=== PATIENT | male | born 1950 | race Caucasian/White ===

== ENCOUNTER → 2016-05-01 | Outpatient (REF) | payer BC, MEDICARE ==
[~2016-05-01] MED LIST: LIPI10TA PO; LISI10TA2 PO; MECL25CH PO; SYNT50TA PO; TYLE325T5 PO
== END | disposition home or self-care (01) ==
LOC: M LAB REF 16:09
PROVIDERS: ATTEND Surgery
DX: L02.511 Cutaneous abscess of right hand (principal)

== ENCOUNTER 2018-02-25 07:13 | Day surgery (SDC) | payer BC ==
[2018-02-25] MEDS: NS 1,000 ML IV (07:49)
[2018-02-25] MEDS ORDERED: LIDOCAINE 2% INJ 100 MG/5 ML SDV (FOR ANES.) As Ordered (09:08)
[2018-02-25] MEDS ORDERED: PROPOFOL 500 MG/50 ML VIAL As Ordered (09:08)
== END 2018-02-25 09:52 | disposition home or self-care (01) ==
LOC: M OPP 07:13
DX: Z12.11 Encounter for screening for malignant neoplasm of colon (principal); K57.30 Diverticulosis of large intestine without perforation or abscess without bleeding; Z80.0 Family history of malignant neoplasm of digestive organs; I10 Essential (primary) hypertension; E78.70 Disorder of bile acid and cholesterol metabolism, unspecified; E03.9 Hypothyroidism, unspecified; F41.9 Anxiety disorder, unspecified; F33.9 Major depressive disorder, recurrent, unspecified; Z79.82 Long term (current) use of aspirin; Z79.899 Other long term (current) drug therapy; Z98.890 Other specified postprocedural states; Z90.49 Acquired absence of other specified parts of digestive tract; Z86.79 Personal history of other diseases of the circulatory system
CPT/HCPCS: G0105

== ENCOUNTER → 2018-07-21 | Outpatient (CLI) | payer MEDICARE ==
[~2018-07-21] MED LIST changes: +ASPI81TA85 PO; +HYDR-3363 PO; +ISOVUE-370 76% 125ML VIAL (Q9967 PER ML) As Ordered ONE; +LOSA50TA88 PO; +MECL1CHW PO; -MECL25CH PO; +SERT-155 PO; +SYNT112T2 PO
--- NOTE | 2018-07-21 09:45 | REP ---
CT chest with IV contrast: History: Thoracic aortic aneurysm of the ascending aorta. Comparison CT study February 04, 2015. CT contrast dose: 75 ml of intravenous Isovue [address] findings: There is mild to moderate ascending aortic dilation again seen. The maximum AP dimension today is 5.06 cm. This is unchanged. There is aortic valvular calcification again noted. Some left coronary artery vascular calcification is noted. Great vessels are tortuous as before. The left vertebral artery is noted incidentally to take a direct aortic origin which is a normal variant. No other vascular abnormality is seen. The descending aorta is tortuous but not aneurysmal. No hilar or mediastinal mass or adenopathy is observed. No pleural or pericardial effusion is seen. There are multiple pulmonary nodules seen. The largest of these include a 8 mm nodule in the right lower lobe seen on page 57 of 116 in series 201 of today's study. There is also an 8 mm nodule in the left lower lobe observed on page 56 of 116. The other noncalcified nodules are all smaller. These are all unchanged from the 2015 prior study. No bony lesion is seen. Impression: 1. Stable ascending thoracic aortic aneurysm, 5.1 cm. Aortic valvular calcification seen. 2. Stable bilateral noncalcified pulmonary nodules. Electronically Signed by Medardo Frausto MD 07/21/2018 10:31 A
== END ==
LOC: M RAD 07:44
PROVIDERS: ATTEND Internal Medicine Cardiovascular Disease
DX: I71.2 Thoracic aortic aneurysm, without rupture (principal); R91.1 Solitary pulmonary nodule
CPT/HCPCS: 71260; Q9967

== ENCOUNTER → 2018-10-16 | Outpatient (CLI) | payer MEDICARE, BC ==
[~2018-10-16] MED LIST changes: -ISOVUE-370 76% 125ML VIAL (Q9967 PER ML) As Ordered ONE
[2018-10-16 16:44] LABS: BASO # 0.1 10^3/uL (0.0-0.2); BASO % 0.9 % (0.0-1.0); EOS # 0.3 10^3/uL (0.0-0.50); EOS % 3.3 % (0.0-3.0); HEMATOCRIT 45.8 % (42.0-52.0); HEMOGLOBIN 15.1 g/dl (13.5-17.5); LYMPH # 2.9 10^3/uL (1.5-4.5); MEAN CORPUSCULAR HEMOGLOBIN 28.9 pg (27.0-33.0); MEAN CORPUSCULAR VOLUME 87.6 fl (80.0-96.0); MONO # 0.7 10^3/uL (0.0-0.8); MONO % 8.7 % (0.0-5.0); NEUTROPHILS # 3.7 10^3/uL (1.8-7.7); NEUTROPHILS % 48.7 % (36.0-66.0); PLATELET COUNT, AUTOMATED 200 10^3/uL (150-450); RED BLOOD COUNT 5.23 10^6/uL (4.30-6.10); WHITE BLOOD COUNT 7.6 10^3/uL (4.0-10.0)
[2018-10-16 17:01] LABS: ALBUMIN 3.7 GM/DL (3.2-5.2); PERCENT SATURATION 34.8 % (19.7-50.0); THYROID STIMULATING HORMONE 1.98 uIU/ML (0.358-3.740)
== END ==
LOC: M WUC 09:42
PROVIDERS: ATTEND Orthopaedic Surgery
DX: Z01.818 Encounter for other preprocedural examination (principal); Z86.39 Personal history of other endocrine, nutritional and metabolic disease; D63.8 Anemia in other chronic diseases classified elsewhere; M25.562 Pain in left knee; M17.12 Unilateral primary osteoarthritis, left knee

== ENCOUNTER → 2018-10-29 | Outpatient (CLI) | payer MEDICARE, BC | LOC: M PT 10:05 | PROVIDERS: ATTEND Orthopaedic Surgery | DX: M25.562 Pain in left knee (principal); M17.12 Unilateral primary osteoarthritis, left knee ==

== ENCOUNTER 2018-12-18 09:30 | Outpatient (RCR) | payer MEDICARE, BC ==
[~2018-12-18 09:30] MED LIST changes: +LISI10TA15 PO; -LISI10TA2 PO
== END 2018-12-20 ==
LOC: M PT 09:30
PROVIDERS: ATTEND Orthopaedic Surgery
DX: Z96.651 Presence of right artificial knee joint (principal)

== ENCOUNTER 2019-01-01 09:28 | Outpatient (RCR) | payer MEDICARE, BC | END 2019-01-19 | LOC: M PT 09:28 | PROVIDERS: ATTEND Orthopaedic Surgery | DX: M25.562 Pain in left knee (principal); Z96.659 Presence of unspecified artificial knee joint ==

== ENCOUNTER 2019-02-10 09:25 | Outpatient (RCR) | payer MEDICARE, BC ==
[~2019-02-10 09:25] MED LIST changes: -SERT-155 PO; +SERT50TA29 PO
== END 2019-02-19 ==
LOC: M PT 09:25
PROVIDERS: ATTEND Orthopaedic Surgery
DX: Z47.1 Aftercare following joint replacement surgery (principal); Z96.652 Presence of left artificial knee joint; M25.562 Pain in left knee; M17.12 Unilateral primary osteoarthritis, left knee

== ENCOUNTER → 2019-11-11 | Outpatient (CLI) | payer MEDICARE, BC ==
[~2019-11-11] MED LIST changes: -ASPI81TA85 PO; +ASPI81TA86 PO
--- NOTE | 2019-11-11 17:01 | REP ---
Clinical: Thoracic aortic aneurysm. Technique: Axial noncontrast images from the thoracic inlet to the upper abdomen with coronal and sagittal re-formations. Comparison: 07/21/2018, 02/04/2015. Findings: The ascending thoracic aorta again measures 5.3 cm maximal diameter with mild chronic atherosclerotic changes. Descending thoracic aorta is normal and measures 2.9 cm maximal diameter. No periaortic inflammatory stranding or fluid identified. Heart and pericardium stable. The bilateral lung desir are well-aerated. Few scattered noncalcified nodules are again identified, stable and measure up to approximately 7 mm. No consolidation, effusion, or pneumothorax. No obvious adenopathy. Musculoskeletal structures demonstrate degenerative changes. Impression: 1. Stable aneurysmal dilatation to the ascending thoracic aorta. 2. Stable noncalcified pulmonary nodules in the lower lobes measure up to 7 mm. Electronically Signed by Angel Luis Milligan MD 11/11/2019 04:53 P
== END ==
LOC: M RAD 15:32
PROVIDERS: ATTEND Thoracic Surgery (Cardiothoracic Vascular Surgery)
DX: I71.2 Thoracic aortic aneurysm, without rupture (principal)

== ENCOUNTER → 2021-01-27 | Outpatient (CLI) | payer MEDICARE, BC ==
--- NOTE | 2021-01-27 11:20 | REP ---
INDICATION: THORACIC AORTIC ANEURYSM W/O RUPTURE COMPARISON: Multiple the latest 11/11/2019 also without contrast TECHNIQUE: Standard helical technique without contrast FINDINGS: The mediastinum and pulmonary maria isabel are stable. The maximal AP dimension of the ascending aorta is 5.3 cm outer wall to outer wall status quo. There are no pleural or pericardial effusions. There is no significant change in appearance of the imaged upper abdomen or imaged osseous structures. Evaluation of the lung desir shows numerous stable appearing pulmonary nodules particularly in the lower lobes and partially obscured by respiratory motion artifact on the latest prior. They are also stable when compared to the 07/21/[address] No definite new abnormal nodules, masses, or opacities have developed. IMPRESSION: Stable CT examination of the chest with findings as described above. There is no evidence of acute disease. <Electronically signed by Jorge Hodgson > 01/27/21 1881
== END ==
LOC: M RAD 10:31
PROVIDERS: ATTEND Thoracic Surgery (Cardiothoracic Vascular Surgery)
DX: I71.2 Thoracic aortic aneurysm, without rupture (principal)

== ENCOUNTER → 2021-02-22 | Outpatient (CLI) | payer MEDICARE, BC | LOC: M LABSMTC 09:46 | PROVIDERS: ATTEND Internal Medicine Cardiovascular Disease | DX: Z11.52 Encounter for screening for COVID-19 (principal) ==

== ENCOUNTER → 2023-01-02 | Outpatient (CLI) | payer MEDICARE, BC ==
[~2023-01-02] MED LIST changes: -LISI10TA15 PO; +LISI10TA24 PO; +LOSA50TA28 PO; -LOSA50TA88 PO
[2023-01-02 18:08] LABS: ALBUMIN 4.1 G/DL (3.2-5.2)
[2023-01-02 18:15] LABS: BASO # 0.1 10^3/uL (0.0-0.2); BASO % 0.9 % (0.0-1.0); EOS # 0.1 10^3/uL (0.0-0.5); EOS % 1.4 % (0.0-3.0); HEMATOCRIT 49.3 % (42.0-52.0); HEMOGLOBIN 16.2 g/dl (13.5-17.5); LYMPH # 2.1 10^3/uL (1.5-5.0); LYMPH % 21.8 % (24.0-44.0); MEAN CORPUSCULAR HEMOGLOBIN 28.8 pg (27.0-33.0); MEAN CORPUSCULAR HGB CONC 32.9 g/dl (32.0-36.5); MEAN CORPUSCULAR VOLUME 87.7 fl (80.0-96.0); MONO # 0.8 10^3/uL (0.0-0.8); MONO % 8.2 % (2.0-8.0); NEUTROPHILS # 6.5 10^3/uL (1.5-8.5); NEUTROPHILS % 67.3 % (36.0-66.0); PLATELET COUNT, AUTOMATED 202 10^3/uL (150-450); RED BLOOD COUNT 5.62 10^6/uL (4.30-6.10); WHITE BLOOD COUNT 9.7 10^3/uL (4.0-10.0)
[2023-01-02 18:17] LABS: PERCENT SATURATION 22.9 % (19.7-50.0)
[2023-01-02 18:21] LABS: FERRITIN 105.7 NG/ML (10.5-307.3)
== END ==
LOC: M WUC 12:44
PROVIDERS: ATTEND Orthopaedic Surgery
DX: M25.561 Pain in right knee (principal)

== ENCOUNTER → 2023-01-11 | Outpatient (CLI) | payer MEDICARE, BC ==
[2023-01-11 14:58] LABS: ALBUMIN 4.1 G/DL (3.2-5.2); ALKALINE PHOSPHATASE 117 U/L (46-116); ALT/SGPT 30 U/L (7.0-40); AST/SGOT 35 U/L (<34); BILIRUBIN,TOTAL 0.6 MG/DL (0.3-1.2); BLOOD UREA NITROGEN 15 MG/DL (9-23); CALCIUM LEVEL 8.9 MG/DL (8.3-10.6); CARBON DIOXIDE LEVEL 30 MMOL/L (20-31); CHLORIDE LEVEL 103 MMOL/L (98-107); CREATININE FOR GFR 0.86 MG/DL (0.70-1.30); GLOMERULAR FILTRATION RATE > 60.0 (>42); GLUCOSE, FASTING 114 MG/DL (74-106); POTASSIUM SERUM 4.7 MMOL/L (3.5-5.1); SODIUM LEVEL 139 MMOL/L (136-145); TOTAL PROTEIN 6.8 G/DL (5.7-8.2)
== END ==
LOC: M PLALAB 10:40
PROVIDERS: ATTEND Family Medicine
DX: Z01.810 Encounter for preprocedural cardiovascular examination (principal)

== ENCOUNTER → 2023-05-17 | Outpatient (CLI) | payer MEDICARE, BC ==
[~2023-05-17] MED LIST changes: +ASPI81CH33 PO
[2023-05-17 11:21] LABS: HEMOGLOBIN A1c 5.2 % (4.0-6.0)
[2023-05-17 11:33] LABS: ALBUMIN 3.9 G/DL (3.2-5.2); ALKALINE PHOSPHATASE 120 U/L (46-116); ALT/SGPT 18 U/L (7.0-40); AST/SGOT 20 U/L (<34); BILIRUBIN,TOTAL 0.6 MG/DL (0.3-1.2); BLOOD UREA NITROGEN 16 MG/DL (9-23); CALCIUM LEVEL 8.4 MG/DL (8.3-10.6); CARBON DIOXIDE LEVEL 29 MMOL/L (20-31); CHLORIDE LEVEL 108 MMOL/L (98-107); CHOLESTEROL LEVEL 130 MG/DL (<200); CHOLESTEROL RISK RATIO 3.01 (<5); CREATININE FOR GFR 0.89 MG/DL (0.70-1.30); GLOMERULAR FILTRATION RATE > 60.0 (>42); GLUCOSE, FASTING 77 MG/DL (74-106); HDL CHOLESTEROL 43.1 MG/DL (>40); LDL CHOLESTEROL 66.1 MG/DL (<100); NON-HDL-C 86.9 MG/DL; POTASSIUM SERUM 4.5 MMOL/L (3.5-5.1); SODIUM LEVEL 137 MMOL/L (136-145); TOTAL PROTEIN 6.8 G/DL (5.7-8.2); TRIGLYCERIDES LEVEL 104 MG/DL (<150)
[2023-05-17 11:35] LABS: THYROID STIMULATING HORMONE 0.395 uIU/ML (0.55-4.78)
== END ==
LOC: M PLALAB 08:40
PROVIDERS: ATTEND Family Medicine
DX: I10 Essential (primary) hypertension (principal); E89.0 Postprocedural hypothyroidism; E78.2 Mixed hyperlipidemia; Z79.899 Other long term (current) drug therapy

== ENCOUNTER 2023-05-21 07:26 | Day surgery (SDC) | payer MEDICARE, BC ==
[~2023-05-21] VITALS: Ht 167.6 cm; Wt 92.9 kg
[~2023-05-21 07:26] MED LIST changes: +NS 1,000 ML IV ONE; +propofoL 200 MG/20 ML VIAL As Ordered ONE
[2023-05-21 09:40] VITALS: BP 166/87; TEMP 95.7; O2SAT 97
== END 2023-05-21 09:40 | disposition home or self-care (01) ==
LOC: M OPP 07:26
PROVIDERS: ATTEND Internal Medicine Gastroenterology
DX: Z12.11 Encounter for screening for malignant neoplasm of colon (principal); Z80.0 Family history of malignant neoplasm of digestive organs; K57.30 Diverticulosis of large intestine without perforation or abscess without bleeding; K64.8 Other hemorrhoids; Z79.02 Long term (current) use of antithrombotics/antiplatelets; Z79.82 Long term (current) use of aspirin; Z79.890 Hormone replacement therapy; Z79.899 Other long term (current) drug therapy

== ENCOUNTER → 2023-11-25 | Outpatient (CLI) | payer MEDICARE, BC ==
[~2023-11-25] MED LIST changes: -NS 1,000 ML IV ONE; -propofoL 200 MG/20 ML VIAL As Ordered ONE
[2023-11-25 15:43] LABS: FREE T4 1.05 NG/DL (0.89-1.76); THYROID STIMULATING HORMONE 2.116 uIU/ML (0.55-4.78)
== END ==
LOC: M PLALAB 10:06
PROVIDERS: ATTEND Family Medicine
DX: E89.0 Postprocedural hypothyroidism (principal)

== ENCOUNTER → 2024-06-03 | Outpatient (CLI) | payer MEDICARE, BC ==
[2024-06-03 18:23] LABS: FREE T4 1.37 NG/DL (0.89-1.76); THYROID STIMULATING HORMONE 1.661 uIU/ML (0.55-4.78)
== END ==
LOC: M PLALAB 15:46
PROVIDERS: ATTEND Family Medicine
DX: E89.0 Postprocedural hypothyroidism (principal)